=== PATIENT | male | born 1960 | race Caucasian/White ===

== ENCOUNTER 2016-12-17 11:36 | Day surgery (SDC) | payer OTHER ==
[~2016-12-17] VITALS: Ht 182.9 cm; Wt 100.0 kg
[~2016-12-17 11:36] MED LIST: 0.9% Sodium Chloride 1,000 ML IV PRN; 0.9% Sodium Chloride 1,000 ML IV SCH; LEVO50CA2 PO; Sodium Chloride LOK Flush 10 mL Syringe IV PRN; fentaNYL-PF 50 mCg/mL 2 mL Inj IVPUSH PRN
[2016-12-17 12:13] VITALS: BP 120/85; PULSE 83; RESP 16; O2SAT 98
--- NOTE | 2016-12-17 13:46 | PCM.ENDCOL ---
Colonoscopy Date of Service: Dec 17, 2016 Physician David Calix MD Pre Procedure Diagnosis: Constipation screening Post Procedure Dx & Findings: Polyp hemorrhoids diverticulosis Procedure Colonoscopy PROCEDURE IN DETAIL: Prep fair Withdrawal time 20 minutes After unremarkable rectal examination the Olympus video colonoscope was inserted patient's anal canal and was advanced to cecum. Landmarks were identified including the ileocecal valve and appendiceal orifice. Scope was withdrawn systematically. Visualized colonic mucosa showed healthy shiny mucosa with normal healthy-appearing vasculature. In the ascending colon there were 2 polyps. The first one was 1 mm in size which was removed completely using cold forceps. The other one was about 5 mm in size was completed removed using cold snare. Transverse colon, there was a 3 mm polyp was removed completely using cold snare. In the rectosigmoid area, there were total of 3 polyps. All 3 polyps were One centimeters. There were all removed completely using hot snare. Multiple diverticulosis noted small to medium in the sigmoid and to take some extent in the ascending colon. In the rectum retroflexion was done which showed hemorrhoids. Anal canal was inspected carefully on the way out and hemorrhoids noted. Impression Fair prep Polyp 6 status post complete removal. Three of the the polyps are 1 cm. Diverticulosis Hemorrhoids Recommendation Repeat colonoscopy in 1 year Diverticular diet Presedation Assessment Risks and Benefits Informed consent was obtained from the patient after all risks and benefits including but not limited to drug reaction, infection, pain, bleeding, perforation, as well as alternatives were discussed. Patient monitoring Continuous pulse oximetry, cardiac monitoring, blood pressure monitoring, IV access, and oxygen at 2L per nasal cannula. Periprocedural Fentanyl: Fentanyl 200mcg Incrementally Midazolam: Midazolam 10mg Incrementally Complications There were no periprocedural complications identified. Post Procedure Plan Post Procedure Recommendations 1. Restrict activities today. 2. Resume normal activities in the morning. 3. Resume medications. 4. Patient informed of normal post procedure side effects as bloating, drowsiness, blood streaking in the stool. 5. average risk CRCS. If colon polyps come back as: -Hyperplastic- can repeat colonoscopy in 10 years -Tubular adenoma- repeat colonoscopy in 5 years -Tubulovillous/villous adenoma- repeat colonoscopy in 3 years -If any dysplasia- return to clinic as soon as possible 6. Please don't hesitate to call me with any questions. David Calix MD Dec 17, 2016 13:46
[2016-12-17 13:50] VITALS: BP 117/79; PULSE 77; RESP 16; O2SAT 96
[2016-12-17 13:57] VITALS: BP 110/78; PULSE 73; RESP 16; O2SAT 95
--- NOTE | 2016-12-20 16:05 | PATH ---
SURGICAL PATHOLOGY Attending Physician:David Calix M.D. CASE STATUS: Signed Out PATIENT NAME: LM HALL PID: [id number] : 1960 DATE COLLECTED:12/17/2016 00:00 SPECIMEN: 1: Colon, Polyp 2: Colon, Polyp 3: Colon, Polyp CLINICAL HISTORY: 1). ASCENDING COLON POLYPS X2 2). TRANSVERSE COLON POLYP X1 3). RECTOSIGMOID POLYPS X3 FINAL DIAGNOSIS: 1.ASCENDING COLON, POLYP, BIOPSY: PORTIONS OF TUBULAR ADENOMA X 3; NEGATIVE FOR HIGH-GRADE DYSPLASIA. SUPERFICIAL PORTION OF COLORECTAL MUCOSA X1 WITH NO DIAGNOSTIC ABNORMALITY. 2.TRANSVERSE COLON, POLYP, BIOPSY: PORTIONS OF TUBULAR ADENOMA X2; NEGATIVE FOR HIGH-GRADE DYSPLASIA. 3.RECTOSIGMOID POLYPS, BIOPSIES: PORTIONS OF TUBULAR ADENOMA X2; NEGATIVE FOR HIGH-GRADE DYSPLASIA. PORTION OF SESSILE SERRATED ADENOMA X1. PORTION OF HYPERPLASTIC POLYP X1. ICD10 K63.5 GROSS DESCRIPTION: The specimen is received in three formalin filled containers labeled with the patient's name. 1). The specimen is labeled "ascending polyps X2" and consists of 4 portions of tissue which aggregate to 0.3 x 0.3 x 0.3 CM. The specimen is entirely submitted in cassette 1A. 2). The specimen is labeled "transverse polyp" and consists of 2 portions of tissue which aggregate to 0.2 x 0.2 x 0.2 CM. The specimen is entirely submitted in cassette 2A. 3). The specimen is labeled "rectosigmoid polyps X3" and consists of 4 portions of tissue which aggregate to 0.6 x 0.6 x 0.5 CM. The specimen is entirely submitted in cassette 3A. 12/18/2016CA MICRO DESCRIPTION: See diagnosis. ICD-9 CODES: CPT CODES: 1: 77499 2: 99957 3: 85652 Electronically Signed Out Aziza Brunson MD [facility] Pathology [facility], [place] [address] Technical component performed at [facility], [facility] [address], [place], [address]
== END 2016-12-17 23:59 | disposition home or self-care (01) ==
LOC: END 11:36
PROVIDERS: ATTEND Internal Medicine
DX: Z12.11 Encounter for screening for malignant neoplasm of colon (principal); D12.2 Benign neoplasm of ascending colon; D12.3 Benign neoplasm of transverse colon; D12.7 Benign neoplasm of rectosigmoid junction; K57.30 Diverticulosis of large intestine without perforation or abscess without bleeding; K64.8 Other hemorrhoids; K59.00 Constipation, unspecified; B19.20 Unspecified viral hepatitis C without hepatic coma
CPT/HCPCS: 45380; 45385; 99153; G0500; J2250; J3010; J7030